=== PATIENT | female | born 1970 | race American Indian/Alaskan Native ===

== ENCOUNTER 2018-06-09 21:20 | Emergency (ER) | payer OTHER ==
[2018-06-10 04:42] VITALS: BP 158/84
== END 2018-06-10 05:00 | disposition left against medical advice (07) ==
LOC: ED 21:20
DX: M54.2 Cervicalgia (principal); Z53.21 Procedure and treatment not carried out due to patient leaving prior to being seen by health care provider

== ENCOUNTER 2022-04-21 19:52 | Emergency (ER) | payer SELFPAY ==
[2022-04-22] MEDS ORDERED: HYDROcodone/ACETAMINOPHEN 5-325 MG TAB PO STA (00:54)
--- NOTE | 2022-04-22 00:59 | Emergency Department Report ---
ED Fall HPI - General Chief Complaint: Fall Stated Complaint: SLIPPED IN [employer]/PAIN Time Seen by Provider: 04/22/22 00:16 Source: patient Mode of arrival: Ambulatory - History of Present Illness Initial Comments: 51-year-old obese -[place] Citizen female presents complaining of pain to the back after a slip and fall accident in [facility]. She was picking her up pushing a buggy help with the right foot slipped out from under her going forward causing her to twist around in a slow awkward splinting type motion and landing on the back. Complaint: fall -: Gradual Fall From: standing Fall Witnessed: no Loss of Consciousness: none Prolonged Down Time?: no Symptoms Prior to Fall: none Location: back Severity: mild, moderate Quality: dull, aching Context: tripped/slipped Associated Symptoms: denies: neck pain, numbness, shortness of breath, lightheaded, vertigo - Related Data Home Medications Medication Instructions Recorded Confirmed Last Taken SUMAtriptan SUCCINATE [Imitrex] 100 mg PO DAILY 11/05/14 11/05/14 11/04/14 Previous Rx's Medication Instructions Recorded Last Taken Type HYDROcodone/APAP 10-325 [[place] 1 each PO Q6HR PRN #8 tablet 11/05/14 Unknown Rx 10-325 mg TAB] Promethazine [Phenergan] 25 mg PO Q6H PRN #8 tablet 11/05/14 Unknown Rx Ketorolac [Toradol] 10 mg PO Q6H PRN #15 tablet 04/22/22 Unknown Rx methOCARBAMOL [Robaxin TAB] 750 mg PO Q8H PRN #14 tablet 04/22/22 Unknown Rx Allergies Allergy/AdvReac Type Severity Reaction Status Date / Time No Known Allergies Allergy Unverified 11/05/14 21:13 ED Review of Systems ROS: Stated complaint: SLIPPED IN [employer]/PAIN Other details as noted in HPI ED Past Medical Hx - Past Medical History Previous Medical History?: Yes Hx Headaches / Migraines: Yes Additional medical history: obesity - Surgical History Past Surgical History?: Yes Hx Cholecystectomy: Yes - Social History Smoking Status: Never Smoker Substance Use Type: None - Medications Home Medications: Home Medications Medication Instructions Recorded Confirmed Last Taken Type HYDROcodone/APAP 10-325 [[place] 1 each PO Q6HR PRN #8 tablet 11/05/14 Unknown Rx 10-325 mg TAB] Promethazine [Phenergan] 25 mg PO Q6H PRN #8 tablet 11/05/14 Unknown Rx SUMAtriptan SUCCINATE [Imitrex] 100 mg PO DAILY 11/05/14 11/05/14 11/04/14 History Ketorolac [Toradol] 10 mg PO Q6H PRN #15 tablet 04/22/22 Unknown Rx methOCARBAMOL [Robaxin TAB] 750 mg PO Q8H PRN #14 tablet 04/22/22 Unknown Rx ED Physical Exam - General Limitations: No Limitations General appearance: alert, in no apparent distress - Head Head exam: Present: atraumatic, normocephalic, normal inspection - Eye Eye exam: Present: normal appearance, PERRL, EOMI Pupils: Present: normal accommodation - ENT ENT exam: Present: normal exam, mucous membranes moist - Neck Neck exam: Present: normal inspection - Respiratory Respiratory exam: Present: normal lung sounds bilaterally. Absent: respiratory distress - Cardiovascular Cardiovascular Exam: Present: regular rate, normal rhythm. Absent: systolic murmur, diastolic murmur, rubs, gallop - GI/Abdominal GI/Abdominal exam: Present: soft, normal bowel sounds - Extremities Exam Extremities exam: Present: normal inspection - Back Exam Back exam: Present: normal inspection - Neurological Exam Neurological exam: Present: alert, oriented X3 - Psychiatric Psychiatric exam: Present: normal affect, normal mood - Skin Skin exam: Present: warm, dry, intact, normal color. Absent: rash Critical care attestation.: If time is entered above; I have spent that time in minutes in the direct care of this critically ill patient, excluding procedure time. ED Disposition Clinical Impression: Fall, Back spasm Disposition: 01 HOME / SELF CARE / HOMELESS Is pt being admited?: No Does the pt Need Aspirin: No Condition: Stable Instructions: Muscle Cramps and Spasms, [id number], Back Injury Prevention, Back Injury Prevention, [id number] Prescriptions: methOCARBAMOL [Robaxin TAB] 750 mg PO Q8H PRN #14 tablet PRN Reason: Pain, Moderate (4-6) Ketorolac [Toradol] 10 mg PO Q6H PRN #15 tablet PRN Reason: Pain Referrals: [facility] [Provider Group] - 3-5 Days KAY BOCANEGRA MD [Staff Physician] - 3-5 Days
[2022-04-22 01:50] VITALS: BP 142/90
== END 2022-04-22 01:50 | disposition home or self-care (01) ==
LOC: ED 19:52
DX: M62.830 Muscle spasm of back (principal); G43.909 Migraine, unspecified, not intractable, without status migrainosus; E66.9 Obesity, unspecified; Z98.890 Other specified postprocedural states; W01.0XXA Fall on same level from slipping, tripping and stumbling without subsequent striking against object, initial encounter; Y93.89 Activity, other specified; Y92.89 Other specified places as the place of occurrence of the external cause; Y99.8 Other external cause status
CPT/HCPCS: 99282

== ENCOUNTER 2022-07-09 05:27 | Emergency (ER) | payer SELFPAY ==
[2022-07-09 06:04] VITALS: BP 169/94
== END 2022-07-09 09:20 | disposition left against medical advice (07) ==
LOC: ED 05:27
DX: R51.9 Headache, unspecified (principal); Z53.21 Procedure and treatment not carried out due to patient leaving prior to being seen by health care provider